=== PATIENT | male | born 1980 | race Caucasian/White ===

== ENCOUNTER 2020-05-11 18:39 | Emergency (ER) | payer OTHER ==
--- NOTE | 2020-05-11 19:15 | ERPHSYRPT ---
- History of Present Illness Time Seen by Provider: 05/11/20 18:45 Patient Subjective Stated Complaint: "I was working with [employer] metal when some slipped and cut my shoulder." Triage Nursing Assessment: Pt presented alert et oriented x3 answering questions appropriately. Pt reported dropping sheet metal and cutting his shoulder. Minimal bleeding noted. Pt has 2cm laceration roughly 0.5cm deep. Bleeding controlled at time of arrival. Pt reported tetanus shot up to date. Physician History: Juan is a 39-year-old male who was doing some [employer] work when he suffered a laceration to his left shoulder from a sheet metal. The laceration incredibly excised a mole over the same area that he was planning to have his signal processing engineer review we encouraged him to mention this to his signal processing engineer and keep an eye on the area. He has he believes been told he has malignant melanoma and further surgeries are planned on his back. Timing/Duration: today Quality: painful Severity: mild Location: extremities (Left shoulder) Possible Causes: no cause identified Allergies/Adverse Reactions: tetracycline [Tetracycline] Allergy (Verified 05/11/20 18:46) Hives Home Medications: Alprazolam [Alprazolam ER] 1 tab PO DAILY 05/11/20 [History] hydroCHLOROthiazide [Hydrochlorothiazide] 1 tab PO DAILY 05/11/20 [History] Hx Tetanus, Diphtheria Vaccination/Date Given: Yes Hx Influenza Vaccination/Date Given: Yes Hx Pneumococcal Vaccination/Date Given: No Travel Risk - International Travel Have you traveled outside of the country in past 3 weeks: No (N) If Yes, where;: N - Coronavirus Screening Are you exhibiting any of the following symptoms?: No Close contact with a COVID-19 positive Pt in past 14-21 Days: No - Review of Systems Constitutional: No Fever, No Chills Eyes: No Symptoms Ears, Nose, & Throat: No Symptoms Respiratory: No Cough, No Dyspnea Cardiac: No Chest Pain, No Edema, No Syncope Abdominal/Gastrointestinal: No Abdominal Pain, No Nausea, No Vomiting, No Diarrhea Genitourinary Symptoms: No Dysuria Musculoskeletal: No Back Pain, No Neck Pain Skin: No Rash Neurological: No Dizziness, No Focal Weakness, No Sensory Changes Psychological: No Symptoms Endocrine: No Symptoms All Other Systems: Reviewed and Negative - Past Medical History Pertinent Past Medical History: Yes Neurological History: No Pertinent History Cardiac History: Hypertension Respiratory History: No Pertinent History Endocrine Medical History: No Pertinent History Musculoskeletal History: Arthritis Psycho-Social History: Anxiety - Past Surgical History Past Surgical History: Yes Gastrointestinal: Hernia Repair Other Surgical History: sinus surg,tonsils - Social History Smoking Status: Never smoker Exposure to second hand smoke: No Drug Use: none Patient Lives Alone: Yes - Nursing Vital Signs Nursing Vital Signs: Initial Vital Signs Temperature 98.5 F 05/11/20 18:39 Pulse Rate 82 05/11/20 18:39 Respiratory Rate 18 05/11/20 18:39 Blood Pressure 129/89 05/11/20 18:39 O2 Sat by Pulse Oximetry 99 05/11/20 18:39 Pain Scale Pain Intensity 1 - Physical Exam General Appearance: no apparent distress, alert Eye Exam: PERRL/EOMI, eyes nml inspection Ears, Nose, Throat Exam: normal ENT inspection, pharynx normal, moist mucous membranes Neck Exam: normal inspection, non-tender, supple, full range of motion Respiratory Exam: normal breath sounds, lungs clear, No respiratory distress Cardiovascular Exam: regular rate/rhythm, normal heart sounds Gastrointestinal/Abdomen Exam: soft, mass, No tenderness Back Exam: normal inspection, normal range of motion, No CVA tenderness, No vertebral tenderness Extremity Exam: normal inspection, normal range of motion Neurologic Exam: alert, oriented x 3, cooperative, normal mood/affect, sensation nml, No motor deficits Skin Exam: normal color, warm, dry, laceration (Serration approximately 2 cm left shoulder) SpO2 Interpretation: normal SpO2: 99 O2 Delivery: Room Air Procedures - Laceration/Wound Repair Left Shoulder Wound Location: Left, upper arm (Left shoulder) Wound Length (cm): 2 Wound's Depth, Shape: superficial Wound Explored: no foreign body noted Irrigated: Yes Hibiclens Prep: Yes Anesthesia: local, 1% Lidocaine Volume Anesthetic (ccs): 3 Wound Debrided: minimal Wound Repaired With: sutures Suture Size/Type: 4-0 Number of Sutures: 3 Layer Closure?: No Sterile Dressing Applied?: Yes Splint Applied?: No Sling Applied?: No - Course Nursing assessment & vital signs reviewed: Yes - Progress Progress: improved - Departure Departure Disposition: Home Clinical Impression: Laceration of shoulder Condition: Stable Critical Care Time: No Referrals: HAILE ARREGUIN [Primary Care Provider] - Instructions: Laceration Repair With Stitches (DC)
[2020-05-11 19:21] VITALS: BP 111/74; PULSE 87; O2SAT 96
== END 2020-05-11 19:27 | disposition home or self-care (01) ==
LOC: ED 18:39
DX: S41.012A Laceration without foreign body of left shoulder, initial encounter (principal); W26.8XXA Contact with other sharp object(s), not elsewhere classified, initial encounter; Y93.89 Activity, other specified; Y92.9 Unspecified place or not applicable; F41.9 Anxiety disorder, unspecified
CPT/HCPCS: 12002; 99283

== ENCOUNTER 2021-03-26 08:28 | Emergency (ER) | payer OTHER ==
[2021-03-26 08:40] VITALS: BP 183/104; O2SAT 94
--- NOTE | 2021-03-26 09:25 | ERPHSYRPT ---
- History of Present Illness Time Seen by Provider: 03/26/21 08:48 Source: patient, police Exam Limitations: clinical condition Patient Subjective Stated Complaint: PD states "He was sitting in his truck in the middle of the road and there was dew all over it, he was there awhile. He had torn all the inside of the truck away.". PT states "Been better." Triage Nursing Assessment: Pt presented alert and oriented X 3, skin pwd pt extremely slow to answer questions, guarded. Pt resting calmly on the bed. Pt denied suicidal ideation, denied homicidal ideation. Pt did state "we'll see"when asked about drug use or alcohol use. Pt is mumbling to himself, uable to tell what pt is saying Physician History: 40 years old male with history of drug abuse in the past who relapsed lately is brought in the ER by police when they found him sitting in the truck parked in the middle of the road and he was pouring inside of the truck throwing out. Patient is calm and denies any suicidal or homicidal ideations. Patient is not answering much question but is not in any distress and nontoxic appearance. Not having apparent hallucinations. Timing/Duration: today Severity of Symptoms-Max: moderate Severity of Symptoms-Current: moderate Allergies/Adverse Reactions: tetracycline [Tetracycline] Allergy (Verified 05/11/20 18:46) Hives Home Medications: Unobtainable 03/26/21 [History] Hx Tetanus, Diphtheria Vaccination/Date Given: Yes Hx Influenza Vaccination/Date Given: Yes Hx Pneumococcal Vaccination/Date Given: No Immunizations Up to Date: Yes Travel Risk - International Travel Have you traveled outside of the country in past 3 weeks: No - Coronavirus Screening Are you exhibiting any of the following symptoms?: No Close contact with a COVID-19 positive Pt in past 14-21 Days: No - Vaccine Status Have you recieved a Covid-19 vaccination: No - Past Medical History Pertinent Past Medical History: Yes Neurological History: No Pertinent History Cardiac History: Hypertension Respiratory History: No Pertinent History Endocrine Medical History: No Pertinent History Musculoskeletal History: Arthritis Psycho-Social History: Anxiety - Past Surgical History Past Surgical History: Yes Gastrointestinal: Hernia Repair Other Surgical History: sinus surg,tonsils - Social History Smoking Status: Never smoker Exposure to second hand smoke: Yes Drug Use: none Patient Lives Alone: No - Review of Systems Constitutional: No Symptoms Eyes: No Symptoms Ears, Nose, & Throat: No Symptoms Respiratory: No Symptoms Cardiac: No Symptoms Abdominal/Gastrointestinal: No Symptoms Genitourinary Symptoms: No Symptoms Musculoskeletal: No Symptoms Skin: No Symptoms Neurological: No Symptoms Psychological: No Suicidal Ideations, No Homicidal Ideations, No Hallucinations Endocrine: No Symptoms Hematologic/Lymphatic: No Symptoms Immunological/Allergic: No Symptoms - Nursing Vital Signs Nursing Vital Signs: Initial Vital Signs Temperature 98.5 F 03/26/21 08:31 Pulse Rate 142 H 03/26/21 08:31 Respiratory Rate 20 03/26/21 08:31 Blood Pressure 183/104 03/26/21 08:31 O2 Sat by Pulse Oximetry 94 L 03/26/21 08:31 Pain Scale Pain Intensity 0 - Physical Exam General Appearance: no apparent distress, alert Eyes, Ears, Nose, Throat Exam: normal ENT inspection, TMs normal, pharynx normal Neck Exam: normal inspection, supple, full range of motion Respiratory Exam: normal breath sounds, lungs clear Cardiovascular Exam: normal heart sounds, tachycardia Gastrointestinal/Abdominal Exam: soft, normal bowel sounds, No tenderness Extremities Exam: normal inspection Neurological Exam: alert, calm, 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 Patient is calm, not in any distress. He is not hallucinating. Could be possible drug use. He refused blood draw. Denies suicidal or homicidal ideations. Is not a threat to himself or someone else and his father is going to pick him up and will stay in close contact with him. Recommended outpatient follow-up and discuss signs symptoms of worsening needing return to ER which do seem understanding. 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 Follow-up with primary care for reevaluation. Keep him all the time with a responsible person for at least 2 days. Call 911 or return to ER for worsening psychotic symptoms.
[2021-03-26 09:30] VITALS: PULSE 104
== END 2021-03-26 09:55 | disposition home or self-care (01) ==
LOC: ED 08:28
DX: F19.959 Other psychoactive substance use, unspecified with psychoactive substance-induced psychotic disorder, unspecified (principal)
CPT/HCPCS: 93005; 99284